=== PATIENT | male | born 1970 | race Caucasian/White ===

== ENCOUNTER 2016-06-09 18:06 | Emergency (ER) | payer OTHER ==
--- NOTE | 2016-06-09 18:45 | ER Document Report ---
ED Medical Screen (RME) - General Stated Complaint: PSYCH EVAL Time seen by provider: 18:44 Mode of Arrival: Ambulatory Information source: Patient Notes: 45-year-old male presents to ED for voices in his head that are driving him crazy. He states he had a nervous breakdown in February. Voices in his head or Him to Run Away. He Says His Voice Been Talking to Him about Hurting Himself. I have greeted and performed a rapid initial assessment of this patient. A comprehensive ED assessment and evaluation of the patient, analysis of test results and completion of medical decision making process will be conducted by an additional ED providers. - Related Data Allergies/Adverse Reactions: Penicillins Allergy (Verified 09/02/13 07:55) Past Medical History Endocrine Medical History: Denies: Hx Diabetes Mellitus Type 2 Renal/ Medical History: Reports: Hx Kidney Stones GI Medical History: Denies: Hx Gastritis, Hx Gastroesophageal Reflux Disease Skin Medical History: Reports Hx Cellulitis - two weeks ago Past Surgical History: Reports: Hx Kidney (Renal Surgery) - kidney stone removed , Hx Tonsillectomy - Immunizations Hx Diphtheria, Pertussis, Tetanus Vaccination: No Physical Exam - Vital signs Vitals: Temp Pulse Resp BP Pulse Ox 98.5 F 61 18 129/87 H 100 06/09/16 18:09 06/09/16 18:09 06/09/16 18:09 06/09/16 18:09 06/09/16 18:09 Course - Vital Signs Vital signs: Temp Pulse Resp BP Pulse Ox 98.5 F 61 18 129/87 H 100 06/09/16 18:09 06/09/16 18:09 06/09/16 18:09 06/09/16 18:09 06/09/16 18:09
[2016-06-09 19:20] LABS: ABSOLUTE EOSINOPHILS # (AUTO) 0.1 10^3/uL (0.0-0.6); ABSOLUTE LYMPHOCYTES (AUTO) 2.4 10^3/uL (0.5-4.7); ABSOLUTE MONOCYTES (AUTO) 0.5 10^3/uL (0.1-1.4); ABSOLUTE NEUT (AUTO) 4.1 10^3/uL (1.7-8.2); BASOPHILS % (AUTO) 0.4 % (0-2); EOSINOPHILS % (AUTO) 1.3 % (0-6); HEMATOCRIT 47.3 % (37.9-51.0); HGB HCT DIFFERENCE 0.7; LYMPHOCYTES % (AUTO) 34.2 % (13-45); MEAN CORPUSCULAR HEMOGLOBIN 32.1 pg (27.0-33.4); MEAN CORPUSCULAR HGB CONC 33.7 g/dL (32.0-36.0); MEAN CORPUSCULAR VOLUME 95 fl (80-97); MONOCYTES % (AUTO) 6.4 % (3-13); RED BLOOD COUNT 4.97 10^6/uL (4.35-5.55); RED CELL DISTRIBUTION WIDTH 12.8 % (11.5-14.0); SEGMENTED NEUTROPHILS % (AUTO) 57.7 % (42-78); WHITE BLOOD COUNT 7.1 10^3/uL (4.0-10.5)
[2016-06-09 19:23] LABS: APPEARANCE,URINE SLIGHTLY-CLOUDY; BILIRUBIN,URINE NEGATIVE (NEGATIVE); GLUCOSE, URINE NEGATIVE (NEGATIVE); KETONES,URINE TRACE mg/dL (NEGATIVE); LEUKOCYTE ESTERASE,URINE NEGATIVE (NEGATIVE); NITRITE,URINE NEGATIVE (NEGATIVE); PROTEIN,URINE NEGATIVE (NEGATIVE); UROBILINOGEN,URINE NEGATIVE mg/dL (<2.0)
[2016-06-09 19:41] LABS: ALANINE AMINOTRANSFERASE 34 U/L (21-72); ALBUMIN 4.1 g/dL (3.5-5.0); ALKALINE PHOSPHATASE 63 U/L (38-126); ANION GAP 9 (5-19); ASPARTATE AMINO TRANSFERASE 25 U/L (17-59); BILIRUBIN,TOTAL 2.5 mg/dL (0.2-1.3); BLOOD UREA NITROGEN 14 mg/dL (7-20); CALCIUM 9.8 mg/dL (8.4-10.2); CARBON DIOXIDE 27 mmol/L (22-30); CHLORIDE 104 mmol/L (98-107); CREATININE RESULT 0.85 mg/dL (0.52-1.25); GLUCOSE 91 mg/dL (75-110); POTASSIUM 4.1 mmol/L (3.6-5.0); SODIUM 139.8 mmol/L (137-145); TOTAL PROTEIN 6.5 g/dL (6.3-8.2)
[2016-06-09 19:45] LABS: ALCOHOL < 10 mg/dL (NONE DETECTED); URINE BARBITURATES SCREEN NEGATIVE; URINE METHADONE SCREEN NEGATIVE; URINE OPIATES LOW NEGATIVE; URINE PHENCYCLIDINE SCREEN NEGATIVE
--- NOTE | 2016-06-09 20:13 | ER Document Report ---
ED Psych Disorder / Suicide - General Chief Complaint: Altered Mental Status Stated Complaint: PSYCH EVAL Time seen by provider: 20:13 Mode of Arrival: Ambulatory Information source: Patient TRAVEL OUTSIDE OF THE [place] IN LAST 30 DAYS: No - HPI Patient complains to provider of: Hallucinating - Auditory, Suicidal ideation Onset was: Cannot confirm Quality of pain: No pain Suicide Risk Factors: Depressed, Male Normal mood: No Associated symptoms: Flat affect Similar symptoms previously: Yes Recently seen / treated by doctor: Yes Notes: Patient is a 45-year-old male who presents to the emergency room complaining of suicidal ideations and auditory hallucinations, states he's been hearing voices for years but over the past week they have increased in intensity and are telling him to harm himself, he states he thinks about harming himself as well, although he has no specific plan to do so, patient is currently being treated by a psychiatrist through [facility], he denies medication noncompliance, he denies any recent attempt at suicide - Related Data Allergies/Adverse Reactions: ibuprofen Allergy (Verified 06/09/16 19:52) Penicillins Allergy (Verified 06/09/16 19:52) Home Medications: Current Home Medications Doxepin HCl 1 - 2 cap PO QHS 06/09/16 [History] Propranolol HCl [Inderal 20 mg Tablet] 1 tab PO TID 06/09/16 [History] Risperidone [Risperdal 1 mg Tablet] 1 tab PO QHS 06/09/16 [History] Past Medical History - General Information source: Patient - Social History Smoking Status: Current Every Day Smoker Chew tobacco use (# tins/day): No Frequency of alcohol use: None Drug Abuse: None, Marijuana Family History: None Patient has suicidal ideation: No Patient has homicidal ideation: No Endocrine Medical History: Denies: Hx Diabetes Mellitus Type 2 Renal/ Medical History: Reports: Hx Kidney Stones. Denies: Hx Peritoneal Dialysis GI Medical History: Denies: Hx Gastritis, Hx Gastroesophageal Reflux Disease Skin Medical History: Reports Hx Cellulitis - two weeks ago Past Surgical History: Reports: Hx Kidney (Renal Surgery) - kidney stone removed , Hx Tonsillectomy - Immunizations Hx Diphtheria, Pertussis, Tetanus Vaccination: No Review of Systems - Review of Systems Constitutional: No symptoms reported EENT: No symptoms reported Cardiovascular: No symptoms reported Respiratory: No symptoms reported Gastrointestinal: No symptoms reported Genitourinary: No symptoms reported Male Genitourinary: No symptoms reported Musculoskeletal: No symptoms reported Skin: No symptoms reported Hematologic/Lymphatic: No symptoms reported Neurological/Psychological: See HPI -: Yes All other systems reviewed and negative Physical Exam - Vital signs Vitals: Temp Pulse Resp BP Pulse Ox 98.5 F 61 18 129/87 H 100 06/09/16 18:09 06/09/16 18:09 06/09/16 18:09 06/09/16 18:09 06/09/16 18:09 Interpretation: Normal - General General appearance: Appears well, Alert - HEENT Head: Normocephalic, Atraumatic Eyes: Normal Pupils: PERRL - Respiratory Respiratory status: No respiratory distress Chest status: Nontender Breath sounds: Normal Chest palpation: Normal - Cardiovascular Rhythm: Regular Heart sounds: Normal auscultation Murmur: No - Abdominal Inspection: Normal Distension: No distension Bowel sounds: Normal Tenderness: Nontender Organomegaly: No organomegaly - Back Back: Normal, Nontender - Extremities General upper extremity: Normal inspection, Nontender, Normal color, Normal ROM , Normal temperature General lower extremity: Normal inspection, Nontender, Normal color, Normal ROM , Normal temperature, Normal weight bearing. No: Cassandra's sign - Neurological Neuro grossly intact: Yes Cognition: Normal Orientation: AAOx4 Montreal Coma Scale Eye Opening: Spontaneous Margy Coma Scale Verbal: Oriented Montreal Coma Scale Motor: Obeys Commands Montreal Coma Scale Total: 15 Speech: Normal Motor strength normal: LUE, RUE, LLE, RLE Sensory: Normal - Psychological Associated symptoms: Normal mood, Depressed, Flat affect - Skin Skin Temperature: Warm Skin Moisture: Dry Skin Color: Normal Course - Re-evaluation Re-evalutation: 06/10/16 02:40 Patient reports auditory hallucinations telling him to harm himself, also admits that he has thoughts to harm himself although he has no active plan, he states he doesn't feel safe at home at present time, therefore IVC paper work has been completed on patient, he will remain in the emergency room until further evaluation by mental health team, he is otherwise medically cleared for discharge or transfer - Vital Signs Vital signs: Temp Pulse Resp BP Pulse Ox 97.6 F 65 16 115/76 97 06/09/16 21:15 06/09/16 21:15 06/09/16 21:15 06/09/16 21:15 06/09/16 21:15 - Laboratory Result Diagrams: 06/09/16 18:50 06/09/16 18:50 Laboratory results interpreted by me: 06/09/16 06/09/16 18:50 18:50 Total Bilirubin 2.5 H Urine Ketones TRACE H Urine Ascorbic Acid 40 H Salicylates < 1.0 L Acetaminophen < 10 L - EKG Interpretation by Me EKG shows normal: Sinus rhythm Rate: Bradycardia Discharge - Discharge Clinical Impression: Auditory hallucinations, Suicidal ideation Depression Qualifiers: Depression Type: unspecified Qualified Code(s): F32.9 - Major depressive disorder, single episode, unspecified Condition: Stable Disposition: PSYCH HOSP/UNIT
[2016-06-09] MEDS ORDERED: NICOTINE 21 MG/24 HR PATCH.TD24 TD ONE (21:04)
[2016-06-10] MEDS ORDERED: LORAZEPAM 1 MG TABLET PO ONE (00:24)
--- NOTE | 2016-06-10 05:39 | EKG REPORT ---
SEVERITY:- BORDERLINE ECG - INCOMPLETE ANALYSIS DUE TO MISSING DATA IN PRECORDIAL LEAD(S) SINUS RHYTHM PROBABLE LEFT ATRIAL ABNORMALITY : Confirmed by: Cira Rothman MD 10-Jun-2016 05:38:46
--- NOTE | 2016-06-10 10:57 | ER Document Report ---
Doctor's Note Notes: 06/10/16 10:56 Medical rounds: Chart reviewed and patient interviewed briefly. Patient denies somatic complaints. States his hallucinations have somewhat improved since yesterday. He is alert, oriented, and coherent. Vital signs are satisfactory. Laboratory values are satisfactory. He remains medically stable pending evaluation by psychosocial team.
[2016-06-10] MEDS ORDERED: OLANZAPINE 5 MG TAB.RAPDIS PO ONE (11:12)
[2016-06-10] MEDS ORDERED: OLANZAPINE 5 MG TABLET PO SCH (18:00)
--- NOTE | 2016-06-10 19:13 | PSYCHOLOGICAL NOTE ---
Psych Note - Psych Note Psych Note: Patient presented to the emergency room complaining of suicidal ideations and auditory hallucinations, states he's been hearing voices for years but over the past week they have increased in intensity and are telling him to harm himself, he states he thinks about harming himself as well, although he has no specific plan to do so, patient is currently being treated by a psychiatrist through [facility], he denies medication noncompliance, he denies any recent attempt at suicide. Patient states that he had a mental breakdown in February. He continued disclosed that since then he has stopped self-medicating with marijuana. Patient disclosed that he suffered from hearing voices for years during that when he was teenager however they were "bad." He continued disclosed that since the break down his voices in his head have been getting uncontrollable. He continues disclosed that they start by whispering and then start to yell. Patient states yesterday he could hear when he first entered the ED was "run away." Patient states that he was so bad he had to call his boss yesterday and asked to get off early so he could come to the hospital. Continue disclose that he was prescribed doxepin and Risperdal however admits that he has been taking the Risperdal because he got restlessly from the septic never sleep. Clinician spoke with patient's she disclosed the patient had a breakdown when they lost the family pet. She herself suffers from mental health issues and is concerned the patient did not receive the assistance he needed the first time. She continue disclose that he left before seeing psych at the ED back in February. She disclosed that the patient states the voices are calm you have to ask questions because he will say they are calm when the voices are just whispering. Patient's disclosed concern about the Risperdal in causing restless legs states that she does not want her on Risperdal. Impression\\plan: Patient is recommended to continue under IVC. Patient will need to be reevaluated.
[2016-06-10] MEDS ORDERED: BUSPIRONE HCL 10 MG TABLET PO SCH (22:00)
[2016-06-10] MEDS ORDERED: BENZTROPINE MESYLATE 1 MG TABLET PO SCH (22:00)
[2016-06-11] MEDS ORDERED: NICOTINE 21 MG/24 HR PATCH.TD24 TD ONE (07:57)
--- NOTE | 2016-06-11 08:50 | PSYCHOLOGICAL NOTE ---
Psych Note - Psych Note Psych Note: Patient presented to the emergency room complaining of suicidal ideations and auditory hallucinations, states he's been hearing voices for years but over the past week they have increased in intensity and are telling him to harm himself, he states he thinks about harming himself as well, although he has no specific plan to do so, patient is currently being treated by a psychiatrist through [facility], he denies medication noncompliance, he denies any recent attempt at suicide. Reevaluation Patient states that he has not heard any voices in over 24 hours. His concerns for the new medications that he was starting last night have subsided. He reports no negative side effects like he experience with Risperdal. Patient does identify that he did wake up last night and was up for a while; however, knowledges his sleeping pattern is altered because of being in the hospital. Patient states that he is bored laying in bed all day and would like to go home. Patient states he is a little worried about losing his job, as he had to call out early on and ended up not go on Monday. Clinician asked what the conversation entailed when he talked to his boss. Patient states when he told his boss's boss told him to take a couple days off to get his head straight. He continued disclosed that he asked his boss if he still had a job, his boss said yes. Patient is alert and orientated to person place time and circumstance. Mood is euthymic with congruent affect. Patient denies suicidal and homicidal ideation. Patient denies current auditory or visual hallucinations; no delusions are noted. Thought process is logical organized and linear. Conversational speech was within normal rate tone and prosody. Eye contact was well maintained. Intellectual abilities appear to be within average range. Attention and concentration are good. Insight, judgment, impulse control are good. 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 Patient's hallucinations have subsided and patient feels confident in being able to return home. Patient has identified multiple economic stressors has been able to discuss some of that with clinician; work and bills. Patient has verbalized concern he would lose his job however going over his conversation with clinician assisted in calming some of is worries. Dr. Mcconnell was consulted on the care and management of this patient. Attending physician is in agreement with recommendations and disposition.
[2016-06-11 10:51] VITALS: BP 117/85
--- NOTE | 2016-06-11 16:10 | EKG REPORT ---
SEVERITY:- ABNORMAL ECG - SINUS RHYTHM PROBABLE LEFT ATRIAL ABNORMALITY PROBABLE ANTEROSEPTAL INFARCT, AGE INDETERM : Confirmed by: Cira Rothman MD 11-Jun-2016 16:08:42
== END 2016-06-11 10:53 | disposition home or self-care (01) ==
LOC: ER 18:06
DX: R45.851 Suicidal ideations (principal); R44.0 Auditory hallucinations; F32.9 Major depressive disorder, single episode, unspecified; F17.200 Nicotine dependence, unspecified, uncomplicated; Z88.0 Allergy status to penicillin; Z87.442 Personal history of urinary calculi; Z88.6 Allergy status to analgesic agent
CPT/HCPCS: 93005 ×2; 99285; 36415; 80307 ×4; 85025; 80053; 81001; 93010 ×2; J3490

== ENCOUNTER → 2017-10-09 | Outpatient (CLI) | payer OTHER ==
[2017-10-09 12:29] LABS: ABSOLUTE EOSINOPHILS # (AUTO) 0.1 10^3/uL (0.0-0.6); ABSOLUTE LYMPHOCYTES (AUTO) 1.9 10^3/uL (0.5-4.7); ABSOLUTE MONOCYTES (AUTO) 0.3 10^3/uL (0.1-1.4); ABSOLUTE NEUT (AUTO) 2.8 10^3/uL (1.7-8.2); BASOPHILS % (AUTO) 0.5 % (0-2); EOSINOPHILS % (AUTO) 1.9 % (0-6); HEMOGLOBIN 14.9 g/dL (13.5-17.0); MEAN CORPUSCULAR HEMOGLOBIN 31.4 pg (27.0-33.4); MEAN CORPUSCULAR HGB CONC 33.9 g/dL (32.0-36.0); MEAN CORPUSCULAR VOLUME 92 fl (80-97); MONOCYTES % (AUTO) 5.4 % (3-13); PLATELET COUNT 223 10^3/uL (150-450); RED BLOOD COUNT 4.75 10^6/uL (4.35-5.55); RED CELL DISTRIBUTION WIDTH 13.7 % (11.5-14.0); SEGMENTED NEUTROPHILS % (AUTO) 55.2 % (42-78); TOTAL CELLS COUNTED % (AUTO) 100 %; WHITE BLOOD COUNT 5.1 10^3/uL (4.0-10.5)
[2017-10-09 12:54] LABS: CHOLESTEROL 242.88 mg/dL (0-200); TRIGLYCERIDES 262 mg/dL (<150)
[2017-10-09 13:06] LABS: DIRECT LDL 156 mg/dL (<100)
[2017-10-09 13:08] LABS: FREE T3 3.46 pg/mL (2.77-5.27); FREE T4 (FREE THYROXINE) 1.14 ng/dL (0.78-2.19)
[2017-10-09 13:12] LABS: VLDL CHOLESTEROL 52.4 mg/dL (10-31)
[2017-10-09 13:22] LABS: THYROID STIMULATING HORMONE 2.18 uIU/mL (0.47-4.68)
== END ==
LOC: OD 11:10
DX: R56.9 Unspecified convulsions (principal)
CPT/HCPCS: 36415; 80061; 84439; 84443; 84481; 85025

== ENCOUNTER → 2018-02-08 | Outpatient (CLI) | payer OTHER | LOC: CCC 12:25 | DX: Z00.00 Encounter for general adult medical examination without abnormal findings (principal) | CPT/HCPCS: 36415; 83036 ==